=== PATIENT | male | born 1990 | race Asian ===

== ENCOUNTER 2022-11-02 15:55 | Emergency (ER) | payer OTHER ==
[~2022-11-02] VITALS: Ht 180.3 cm; Wt 113.4 kg
[2022-11-02 16:21] VITALS: BP 145/86; TEMP 98.8
== END 2022-11-02 17:08 | disposition home or self-care (01) ==
LOC: ED 15:55
DX: S51.802A Unspecified open wound of left forearm, initial encounter (principal); S61.209A Unspecified open wound of unspecified finger without damage to nail, initial encounter; B95.7 Other staphylococcus as the cause of diseases classified elsewhere; Y92.89 Other specified places as the place of occurrence of the external cause
CPT/HCPCS: 96372; 99282; J1100